=== PATIENT | female | born 1965 | race Two or more races ===

== ENCOUNTER 2019-02-06 18:48 | Emergency (ER) | payer BC ==
[2019-02-06] MEDS ORDERED: OXYCODONE/APAP 5/325 TAB PO ONE (19:01)
== END 2019-02-06 19:45 | disposition home or self-care (01) ==
DX: S52.571A Other intraarticular fracture of lower end of right radius, initial encounter for closed fracture (principal); S52.611A Displaced fracture of right ulna styloid process, initial encounter for closed fracture; W01.0XXA Fall on same level from slipping, tripping and stumbling without subsequent striking against object, initial encounter; Y93.01 Activity, walking, marching and hiking

== ENCOUNTER → 2019-02-25 | Outpatient (CLI) | payer BC | LOC: BMCIMAGING 15:07 | PROVIDERS: ATTEND Orthopaedic Surgery Hand Surgery | DX: S52.501D Unspecified fracture of the lower end of right radius, subsequent encounter for closed fracture with routine healing (principal) ==